=== PATIENT | male | born 1960 | race African-American/Black ===

== ENCOUNTER 2016-02-12 16:33 | Emergency (ER) | payer OTHER ==
[~2016-02-12 16:33] MED LIST: ALEVE220 MG PO; ALPRAZOLAM0.5 MG PO; AMARYL4 MG PO; ASPIR-LOW81 MG PO; Amaryl PO; HYDROCODON-ACE1 EAC7 PO; HYZAAR 100-11 TABLET PO; LANTUS 10100 UNITS/ SC; LANTUS100 UNIT/1 SQ; LIPITOR20 MG PO; LOW DOSE ASPIRI81 M2 PO; Levaquin PO; Lipitor PO; MOTRIN800 MG PO; MYLANTA 360 ML360 ML PO; NEURONTIN100 MG PO; NIASPAN,SLO-N1000 MG PO; NIASPAN,SLO-NI500 MG PO; NIASPAN1000 MG PO; NOVOLOG PE100 UNITS/ SC; NOVOLOG100 UNIT/2 SQ; OMEPRAZOLE20 MG PO; PHILLIPS'400 MG/5 M PO; PLAVIX75 MG PO; PREDNISONE20 MG PO; PREDNISONE50 MG PO; PRILOSEC20 MG PO; PROAIR HFA8.5 GM IH; PROVENTIL HFA6.7 GM IH; Plavix PO; Proventil,Ventolin H IH; Robitussin AC,Tussi- PO; THERAGEN60 GM TP; TOPROL XL100 MG PO; TYLENOL PM EX-1 EAC1 PO; TYLENOL REGULA325 MG PO; Toprol XL PO; VENTOLIN HFA18 GM IH; ZESTORETIC 20-1 EAC1 PO; ZESTRIL5 MG PO; ZITHROMAX Z-PA250 MG PO; Zestril,Prinivil PO; predniSONE PO
== END 2016-02-12 18:02 | disposition left against medical advice (07) ==
LOC: EME 16:33
DX: R56.9 Unspecified convulsions (principal); Z53.21 Procedure and treatment not carried out due to patient leaving prior to being seen by health care provider

== ENCOUNTER 2016-03-06 07:36 | Observation (INO) | payer OTHER ==
[~2016-03-06] VITALS: Ht 195.6 cm; Wt 159.0 kg
[2016-03-06 09:03] LABS: EOSINOPHIL (%) 0.8 % (0-5); EOSINOPHIL COUNT 0.1 K/uL (0-0.3); HEMATOCRIT 32.6 % (38.0-50.0); IMMATURE GRANULOCYTE (%) 0.2 % (0.0-0.7); IMMATURE GRANULOCYTE COUNT 0.2 K/uL; LYMPHOCYTE COUNT 1.4 K/uL (1.0-2.8); MCH 30.9 PG (29.0-34.0); MCV 90.8 FL (86-99); MONOCYTE (%) 5.5 % (3-12); MONOCYTE COUNT 0.5 K/uL (0-0.8); NEUTROPHIL (%) 76.7 % (45-76); NEUTROPHIL COUNT 6.4 K/uL (1.8-6.4); PLATELET COUNT 145 K/uL (156-360); RBC DIS.WIDTH-CV 12.8 % (11.8-14.6); RBC DIS.WIDTH-SD 41.1 % (39-53); RED BLOOD COUNT 3.59 M/uL (4.00-5.50); WHITE BLOOD COUNT 8.4 K/uL (4.1-10.2)
[2016-03-06 09:15] LABS: CHLORIDE 103 mEq/L (99-109); POTASSIUM 4.6 mEq/L (3.7-5.4); SODIUM 137 mEq/L (136-147)
[2016-03-06 09:17] LABS: GLUCOSE 215 mg/dL (70-99)
[2016-03-06 09:18] LABS: ANION GAP 10 MEQ/L (2-14)
[2016-03-06 09:21] LABS: GFR ESTIMATE (CALCULATED) > 59 mL/min/
[2016-03-06 09:22] LABS: UREA NITROGEN (BUN) 18 mg/dL (9-23)
[2016-03-06 09:23] LABS: CREATINE KINASE 362 IU/L (1-294); TROP-I INTERPRETATION NEGATIVE; TROPONIN-I 0.01 ng/mL (0.0-0.30)
[2016-03-06] MEDS ORDERED: GABAPENTIN300 MG PO (13:13)
[2016-03-06] MEDS ORDERED: NOVOLOG PE100 UNITS/ SC (13:14)
[2016-03-06] MEDS ORDERED: MEN'S MULTI-VI1 EACH PO (13:15)
[2016-03-06] MEDS ORDERED: MOBIC15 MG PO (13:16)
[2016-03-06] MEDS ORDERED: ACETAMINOPHEN-1 EAC1 PO (13:16)
[2016-03-06] MEDS ORDERED: TIZANIDINE HCL4 MG PO (13:16)
[2016-03-06] MEDS ORDERED: PRAVASTATIN SOD80 MG PO (13:17)
[2016-03-06] MEDS ORDERED: FLUTICASONE PRO16 GM BOTH NARES (13:17)
[2016-03-06] MEDS ORDERED: AZITHROMYCIN250 MG PO (13:22)
[2016-03-06 15:56] LABS: TROP-I INTERPRETATION NEGATIVE; TROPONIN-I < 0.01 ng/mL (0.0-0.30)
[2016-03-06 16:07] LABS: IRON 30 MCG/DL (35-150)
[2016-03-06 16:23] LABS: FERRITIN 181 NG/ML (22-322)
[2016-03-06 17:42] VITALS: BP 189/86
[2016-03-06 17:49] LABS: POINT-OF-CARE METER ID UU13113700
[2016-03-07 04:29] VITALS: BP 141/82
[2016-03-07 07:24] LABS: POINT-OF-CARE METER ID UU14162513
[2016-03-07 07:34] LABS: ANION GAP 9 MEQ/L (2-14); CHLORIDE 100 MEQ/L (99-109); CREATINE KINASE 259 IU/L (1-294); GFR ESTIMATE (CALCULATED) > 59 mL/min/; GLUCOSE 214 mg/dL (70-99); POTASSIUM 4.3 MEQ/L (3.7-5.4); SAMPLE HEMOLYSIS CHECK 0; SAMPLE ICTERIC CHECK 0; SAMPLE LIPEMIA CHECK 0; SODIUM 138 MEQ/L (136-147); TOTAL CK 259 IU/L (1-294); UREA NITROGEN (BUN) 20 mg/dL (9-23)
[2016-03-07 07:59] LABS: CK-MB 3.6 ng/mL (0.0-4.9)
[2016-03-07 08:30] VITALS: BP 170/84
[2016-03-07] MEDS ORDERED: FERROUS SULFAT325 MG PO (11:23)
[2016-03-07] MEDS ORDERED: ZITHROMAX500 MG PO (11:23)
[2016-03-07 12:42] LABS: POINT-OF-CARE METER ID UU13113700
[2016-03-07 13:14] VITALS: BP 163/79
[2016-03-07] MEDS ORDERED: NORVASC2.5 MG PO (14:40)
== END 2016-03-07 16:36 | disposition home or self-care (01) ==
LOC: EME 07:36 → EDOF 13:25 → 5WEST 13:25 → EDOF 13:25 → 5WEST 17:02
PROVIDERS: Emergency Medicine; Hospitalist; Internal Medicine
DX: J40 Bronchitis, not specified as acute or chronic (principal); R06.00 Dyspnea, unspecified; I27.2 Other secondary pulmonary hypertension; R07.9 Chest pain, unspecified; D50.9 Iron deficiency anemia, unspecified; N17.9 Acute kidney failure, unspecified; I25.10 Atherosclerotic heart disease of native coronary artery without angina pectoris; E11.9 Type 2 diabetes mellitus without complications; Z79.4 Long term (current) use of insulin; I10 Essential (primary) hypertension; E78.5 Hyperlipidemia, unspecified; Z95.1 Presence of aortocoronary bypass graft; J44.9 Chronic obstructive pulmonary disease, unspecified; Z79.82 Long term (current) use of aspirin; R53.83 Other fatigue; Z87.891 Personal history of nicotine dependence
CPT/HCPCS: 71010; 80048; 82550; 82553; 82607; 82728; 82746; 82948; 83540; 83880; 84466; 84484; 85025; 93005; 93306; 94760; 94799; 99202; 99281; 99285; G0378; J1644; J1815; J1940; J7030

== ENCOUNTER 2016-03-18 19:57 | Inpatient (IN) | payer OTHER ==
[~2016-03-18] VITALS: Ht 195.6 cm; Wt 156.0 kg
[~2016-03-18 19:57] MED LIST changes: +ACETAMINOPHEN-1 EAC1 PO; +AZITHROMYCIN250 MG PO; +FERROUS SULFAT325 MG PO; +FLUTICASONE PRO16 GM BOTH NARES; +GABAPENTIN300 MG PO; +MEN'S MULTI-VI1 EACH PO; +MOBIC15 MG PO; +NORVASC2.5 MG PO; +PRAVASTATIN SOD80 MG PO; +TIZANIDINE HCL4 MG PO; +ZITHROMAX500 MG PO
[2016-03-18 21:05] LABS: INFLUENZA A VIRAL ANTIGEN NEGATIVE; INFLUENZA B VIRAL ANTIGEN NEGATIVE
[2016-03-18 21:20] LABS: CHLORIDE 101 mEq/L (99-109); POTASSIUM 4.5 mEq/L (3.7-5.4); SODIUM 137 mEq/L (136-147)
[2016-03-18 21:21] LABS: GLUCOSE 126 mg/dL (70-99)
[2016-03-18 21:23] LABS: ANION GAP 13 MEQ/L (2-14)
[2016-03-18 21:24] LABS: HEMATOCRIT 39.5 % (38.0-50.0); MCH 31.4 PG (29.0-34.0); MCHC 34.4 G/DL (30.0-36.0); MCV 91.2 FL (86-99); MEAN PLAT.VOLUME 10.8 uM^3 (9.0-12.4); PLATELET COUNT 216 K/uL (156-360); RBC DIS.WIDTH-CV 12.6 % (11.8-14.6); RED BLOOD COUNT 4.33 M/uL (4.00-5.50); WHITE BLOOD COUNT 6.3 K/uL (4.1-10.2)
[2016-03-18 21:25] LABS: GFR ESTIMATE (CALCULATED) > 59 mL/min/
[2016-03-18 21:26] LABS: UREA NITROGEN (BUN) 26 mg/dL (9-23)
[2016-03-19 00:34] LABS: POINT-OF-CARE METER ID UU14100415; POINT-OF-CARE USER ID 608261302
[2016-03-19 00:42] LABS: D-DIMER ELISA 0.63 mg/L FEU (< 0.57)
[2016-03-19 03:17] VITALS: BP 149/72
[2016-03-19 07:37] VITALS: BP 147/67
[2016-03-19 10:41] LABS: ANION GAP 12 MEQ/L (2-14); CHLORIDE 98 MEQ/L (99-109); GFR ESTIMATE (CALCULATED) > 59 mL/min/; SAMPLE HEMOLYSIS CHECK 0; SAMPLE ICTERIC CHECK 0; SAMPLE LIPEMIA CHECK 0; SODIUM 135 MEQ/L (136-147); UREA NITROGEN (BUN) 21 mg/dL (9-23)
[2016-03-19 10:42] LABS: GLUCOSE 317 mg/dL (70-99)
[2016-03-19 15:02] VITALS: BP 142/66
[2016-03-20] VITALS: BP 120/63
[2016-03-20 06:59] LABS: HEMATOCRIT 35.6 % (38.0-50.0); MCH 30.9 PG (29.0-34.0); MEAN PLAT.VOLUME 10.6 uM^3 (9.0-12.4); PLATELET COUNT 216 K/uL (156-360); RBC DIS.WIDTH-CV 12.8 % (11.8-14.6); RBC DIS.WIDTH-SD 42.2 % (39-53); RED BLOOD COUNT 3.91 M/uL (4.00-5.50)
[2016-03-20 07:01] LABS: WHITE BLOOD COUNT 10.1 K/uL (4.1-10.2)
[2016-03-20 07:44] LABS: INTERNAL CONTROL VALID? YES
[2016-03-20 08:02] LABS: ANION GAP 10 MEQ/L (2-14); CHLORIDE 99 MEQ/L (99-109); GFR ESTIMATE (CALCULATED) > 59 mL/min/; GLUCOSE 379 mg/dL (70-99); POTASSIUM 4.5 MEQ/L (3.7-5.4); SAMPLE HEMOLYSIS CHECK 0; SAMPLE ICTERIC CHECK 0; SAMPLE LIPEMIA CHECK 0; SODIUM 135 MEQ/L (136-147); UREA NITROGEN (BUN) 29 mg/dL (9-23)
[2016-03-20 08:04] VITALS: BP 139/82
[2016-03-20 12:35] LABS: POINT-OF-CARE USER ID BHSKTD
[2016-03-20 15:23] VITALS: BP 146/76
[2016-03-21] VITALS: BP 148/63
[2016-03-21 07:45] VITALS: BP 132/65
[2016-03-21] MEDS ORDERED: LEVOFLOXACIN750 MG PO (11:35)
[2016-03-21] MEDS ORDERED: ADVAIR HFA120 INHALA IH (11:36)
[2016-03-21] MEDS ORDERED: PREDNISONE10 MG PO (11:36)
== END 2016-03-21 13:15 | disposition home or self-care (01) | DRG 191 ==
LOC: EME 19:57 → 5SOUTH 03-19 01:53 → EDOF 03-19 01:53 → 5SOUTH 03-19 03:10
PROVIDERS: Emergency Medicine; Family Medicine; Hospitalist; Physician Assistant Medical
DX: J44.0 Chronic obstructive pulmonary disease with (acute) lower respiratory infection (principal); J20.9 Acute bronchitis, unspecified; J44.1 Chronic obstructive pulmonary disease with (acute) exacerbation; I27.2 Other secondary pulmonary hypertension; G47.33 Obstructive sleep apnea (adult) (pediatric); Z99.81 Dependence on supplemental oxygen; E66.01 Morbid (severe) obesity due to excess calories; Z68.41 Body mass index [BMI] 40.0-44.9, adult; E11.40 Type 2 diabetes mellitus with diabetic neuropathy, unspecified; I10 Essential (primary) hypertension; J32.9 Chronic sinusitis, unspecified; I25.10 Atherosclerotic heart disease of native coronary artery without angina pectoris; E78.5 Hyperlipidemia, unspecified; J45.909 Unspecified asthma, uncomplicated; K21.9 Gastro-esophageal reflux disease without esophagitis; G43.909 Migraine, unspecified, not intractable, without status migrainosus; I25.2 Old myocardial infarction; F32.9 Major depressive disorder, single episode, unspecified; Z95.1 Presence of aortocoronary bypass graft; Z95.5 Presence of coronary angioplasty implant and graft; Z79.4 Long term (current) use of insulin; Z87.891 Personal history of nicotine dependence
CPT/HCPCS: 71020; 71275; 80048; 82948; 85027; 85379; 87040; 87070; 87205; 87449; 87502; 94640; 94640 76; 99202; 99281; 99285; J1644; J1815; J1956; J2930; J7030; J7512

== ENCOUNTER 2016-06-16 09:06 | Emergency (ER) | payer OTHER ==
[~2016-06-16] VITALS: Ht 195.6 cm; Wt 165.0 kg
[~2016-06-16 09:06] MED LIST changes: +ADVAIR HFA120 INHALA IH; +LEVOFLOXACIN750 MG PO; +PREDNISONE10 MG PO
[2016-06-16 09:40] LABS: HEMATOCRIT 34.3 % (38.0-50.0); MCH 31.1 PG (29.0-34.0); MCHC 33.5 G/DL (30.0-36.0); MCV 92.7 FL (86-99); MEAN PLAT.VOLUME 10.1 uM^3 (9.0-12.4); PLATELET COUNT 187 K/uL (156-360); RBC DIS.WIDTH-CV 13.1 % (11.8-14.6); RBC DIS.WIDTH-SD 44.5 % (39-53); WHITE BLOOD COUNT 5.9 K/uL (4.1-10.2)
[2016-06-16 09:53] LABS: CHLORIDE 104 mEq/L (99-109); POTASSIUM 5.4 mEq/L (3.7-5.4); SODIUM 137 mEq/L (136-147)
[2016-06-16 09:54] LABS: GLUCOSE 188 mg/dL (70-99)
[2016-06-16 09:56] LABS: ANION GAP 7 MEQ/L (2-14)
[2016-06-16 09:58] LABS: GFR ESTIMATE (CALCULATED) > 59 mL/min/
[2016-06-16 09:59] LABS: UREA NITROGEN (BUN) 22 mg/dL (9-23)
[2016-06-16 10:02] LABS: TROP-I INTERPRETATION NEGATIVE; TROPONIN-I 0.01 ng/mL (0.0-0.30)
[2016-06-16 10:25] LABS: POINT-OF-CARE METER ID UU13113702
[2016-06-16 12:39] LABS: POINT-OF-CARE METER ID UU13113702
[2016-06-16 12:55] LABS: TROP-I INTERPRETATION NEGATIVE; TROPONIN-I 0.01 ng/mL (0.0-0.30)
[2016-06-16] MEDS ORDERED: PREDNISONE20 MG PO (14:08)
[2016-06-16] MEDS ORDERED: TYLENOL WITH C1 EACH PO (14:08)
[2016-06-16 14:19] VITALS: BP 136/72
== END 2016-06-16 14:38 | disposition home or self-care (01) ==
LOC: EME 09:06
PROVIDERS: Nurse Practitioner Family
DX: J44.1 Chronic obstructive pulmonary disease with (acute) exacerbation (principal); M79.89 Other specified soft tissue disorders; G62.9 Polyneuropathy, unspecified; E11.9 Type 2 diabetes mellitus without complications; I10 Essential (primary) hypertension; Z79.4 Long term (current) use of insulin; I25.2 Old myocardial infarction; Z95.1 Presence of aortocoronary bypass graft; Z98.61 Coronary angioplasty status; Z87.891 Personal history of nicotine dependence
CPT/HCPCS: 71020; 80048; 82948; 83880; 84484; 85027; 93005; 94640; 99281; 99285

== ENCOUNTER 2016-07-29 17:02 | Emergency (ER) | payer OTHER ==
[~2016-07-29] VITALS: Ht 195.6 cm; Wt 159.8 kg
[~2016-07-29 17:02] MED LIST changes: +TYLENOL WITH C1 EACH PO
[2016-07-29] MEDS ORDERED: INDOCIN50 MG PO (19:36)
[2016-07-29] MEDS ORDERED: LIDOCAINE20 MG/1 M5 PO (19:36)
[2016-07-29] MEDS ORDERED: PREDNISONE20 MG PO (19:36)
[2016-07-29] MEDS ORDERED: CLINDAMYCIN HC300 MG PO (19:36)
[2016-07-29] MEDS ORDERED: NORCO 7.5/321 TABLET PO (19:37)
[2016-07-29 20:04] VITALS: BP 144/86
== END 2016-07-29 20:06 | disposition home or self-care (01) ==
LOC: EXP 17:02 → EME 17:02 → EXP 20:06
DX: K02.9 Dental caries, unspecified (principal); J44.9 Chronic obstructive pulmonary disease, unspecified; E11.9 Type 2 diabetes mellitus without complications; I10 Essential (primary) hypertension; E78.5 Hyperlipidemia, unspecified; Z95.1 Presence of aortocoronary bypass graft; Z95.5 Presence of coronary angioplasty implant and graft
CPT/HCPCS: 99281; 99284; J7512

== ENCOUNTER 2016-08-16 04:47 | Emergency (ER) | payer OTHER ==
[~2016-08-16] VITALS: Ht 195.6 cm; Wt 165.0 kg
[~2016-08-16 04:47] MED LIST changes: +CLINDAMYCIN HC300 MG PO; +INDOCIN50 MG PO; +LIDOCAINE20 MG/1 M5 PO; +NORCO 7.5/321 TABLET PO
[2016-08-16] MEDS ORDERED: NORCO 5/3251 TABLET PO (05:47)
[2016-08-16] MEDS ORDERED: LIDODERM 5% P1 PATCH TD (06:09)
[2016-08-16 06:18] VITALS: BP 151/84
== END 2016-08-16 06:31 | disposition home or self-care (01) ==
LOC: EME 04:47
DX: S20.211A Contusion of right front wall of thorax, initial encounter (principal); W01.0XXA Fall on same level from slipping, tripping and stumbling without subsequent striking against object, initial encounter; J44.9 Chronic obstructive pulmonary disease, unspecified; J45.909 Unspecified asthma, uncomplicated; I10 Essential (primary) hypertension; E11.9 Type 2 diabetes mellitus without complications; Z79.4 Long term (current) use of insulin; Z95.1 Presence of aortocoronary bypass graft; Z95.5 Presence of coronary angioplasty implant and graft; Z79.82 Long term (current) use of aspirin
CPT/HCPCS: 71101; 99281; 99283

== ENCOUNTER 2016-09-28 14:19 | Emergency (ER) | payer OTHER ==
[~2016-09-28] VITALS: Ht 195.6 cm; Wt 159.0 kg
[~2016-09-28 14:19] MED LIST changes: +LIDODERM 5% P1 PATCH TD; +NORCO 5/3251 TABLET PO
[2016-09-28 14:21] VITALS: BP 162/91
[2016-09-28] MEDS ORDERED: NORCO 5/3251 TABLET PO (15:01)
[2016-09-28] MEDS ORDERED: CLINDAMYCIN HC150 MG PO (15:01)
== END 2016-09-28 15:39 | disposition home or self-care (01) ==
LOC: EME 14:19
DX: K04.7 Periapical abscess without sinus (principal)
CPT/HCPCS: 99281; 99284

== ENCOUNTER 2016-12-28 01:25 | Emergency (ER) | payer OTHER ==
[~2016-12-28] VITALS: Ht 195.6 cm; Wt 162.8 kg
[~2016-12-28 01:25] MED LIST changes: +CLINDAMYCIN HC150 MG PO
[2016-12-28] MEDS ORDERED: VENTOLIN HFA18 GM IH (02:59)
[2016-12-28] MEDS ORDERED: ZITHROMAX Z-PA250 MG PO (02:59)
[2016-12-28 03:55] VITALS: BP 128/71
== END 2016-12-28 03:57 | disposition home or self-care (01) ==
LOC: EME 01:25
DX: J44.0 Chronic obstructive pulmonary disease with (acute) lower respiratory infection (principal); J20.9 Acute bronchitis, unspecified; I10 Essential (primary) hypertension; E11.9 Type 2 diabetes mellitus without complications; F32.9 Major depressive disorder, single episode, unspecified; K21.9 Gastro-esophageal reflux disease without esophagitis; F41.9 Anxiety disorder, unspecified; I25.2 Old myocardial infarction; Z95.1 Presence of aortocoronary bypass graft; Z95.5 Presence of coronary angioplasty implant and graft; Z86.73 Personal history of transient ischemic attack (TIA), and cerebral infarction without residual deficits; Z79.4 Long term (current) use of insulin; Z79.82 Long term (current) use of aspirin; Z88.5 Allergy status to narcotic agent
CPT/HCPCS: 71020; 94640; 99281; 99284

== ENCOUNTER 2017-01-29 23:08 | Observation (INO) | payer OTHER ==
[~2017-01-29] VITALS: Ht 195.6 cm; Wt 161.8 kg
[~2017-01-29 23:08] MED LIST changes: -GABAPENTIN300 MG PO; +GABAPENTIN600 MG PO; -LOW DOSE ASPIRI81 M2 PO
[2017-01-29 23:34] LABS: POINT-OF-CARE METER ID UU13113778
[2017-01-29 23:52] LABS: CHLORIDE 100 mEq/L (99-109); POTASSIUM 4.1 mEq/L (3.7-5.4); SODIUM 137 mEq/L (136-147)
[2017-01-29 23:54] LABS: GLUCOSE 182 mg/dL (70-99)
[2017-01-29 23:55] LABS: ANION GAP 11 MEQ/L (2-14); HEMATOCRIT 37.7 % (38.0-50.0); MCH 30.7 PG (29.0-34.0); MCHC 33.4 G/DL (30.0-36.0); RBC DIS.WIDTH-SD 43.2 % (39-53); WHITE BLOOD COUNT 6.5 K/uL (4.1-10.2)
[2017-01-29 23:58] LABS: GFR ESTIMATE (CALCULATED) 54 mL/min/ (58.99-99999)
[2017-01-29 23:59] LABS: UREA NITROGEN (BUN) 31 mg/dL (9-23)
[2017-01-30 00:06] LABS: TROP-I INTERPRETATION NEGATIVE; TROPONIN-I 0.02 ng/mL (0.0-0.30)
[2017-01-30 00:43] LABS: MEAN PLAT.VOLUME 11.1 uM^3 (9.0-12.4); PLATELET COUNT 197 K/uL (156-360)
[2017-01-30 06:26] LABS: CHLORIDE 103 mEq/L (99-109); POTASSIUM 5.9 mEq/L (3.7-5.4); SODIUM 135 mEq/L (136-147)
[2017-01-30 06:28] LABS: GLUCOSE 178 mg/dL (70-99)
[2017-01-30 06:29] LABS: ANION GAP 8 MEQ/L (2-14)
[2017-01-30 06:30] LABS: TOTAL BILIRUBIN 0.4 mg/dL (0.0-1.0)
[2017-01-30 06:32] LABS: ALKALINE PHOSPHATASE 68 IU/L (3-129); GFR ESTIMATE (CALCULATED) > 59 mL/min/ (58.99-99999)
[2017-01-30 06:33] LABS: UREA NITROGEN (BUN) 29 mg/dL (9-23)
[2017-01-30 06:35] LABS: TROP-I INTERPRETATION NEGATIVE; TROPONIN-I < 0.01 ng/mL (0.0-0.30)
[2017-01-30 07:03] LABS: HDL CHOLESTEROL 24 MG/DL (Desirable>=40); NON-HDL CHOLESTEROL 122 mg/dL (Desirable<160); TOTAL CHOLESTEROL 146 mg/dL (Desirable<200); TRIGLYCERIDES 416 MG/DL (Normal: <150)
[2017-01-30 08:49] LABS: Estimated Average Glucose 192 mg/dL (70-123); HEMOGLOBIN A1c (GLYCOHEMOGLOB) 8.3 % HGB (Below 5.7)
[2017-01-30 08:57] LABS: POINT-OF-CARE METER ID UU13113747
[2017-01-30] MEDS ORDERED: LIDODERM 5% P1 PATCH TD (11:29)
[2017-01-30] MEDS ORDERED: TIZANIDINE HCL4 MG PO (11:31)
[2017-01-30] MEDS ORDERED: METOPROLOL TART25 MG PO (11:31)
[2017-01-30] MEDS ORDERED: CLOPIDOGREL75 MG PO (11:35)
[2017-01-30 12:33] LABS: TROP-I INTERPRETATION NEGATIVE; TROPONIN-I < 0.01 ng/mL (0.0-0.30)
[2017-01-30] MEDS ORDERED: PROTONIX40 MG PO (15:50)
[2017-01-30 16:19] VITALS: BP 141/75
[2017-01-30 17:41] LABS: POINT-OF-CARE METER ID UU14302475
[2017-01-30 18:17] LABS: POINT-OF-CARE METER ID UU14162513
[2017-01-30 19:28] VITALS: BP 139/79
[2017-01-30 21:30] LABS: POINT-OF-CARE METER ID UU14302475
[2017-01-30 23:34] VITALS: BP 162/84
[2017-01-31 03:11] VITALS: BP 134/70
[2017-01-31 07:30] VITALS: BP 139/63
[2017-01-31] MEDS ORDERED: ATORVASTATIN CA40 MG PO (08:08)
[2017-01-31] MEDS ORDERED: LIDODERM 5% P1 PATCH TD (08:09)
[2017-01-31 08:10] LABS: POINT-OF-CARE METER ID UU13113700
== END 2017-01-31 09:33 | disposition home or self-care (01) ==
LOC: EME 23:08 → EDOF 01-30 05:00 → ENRESERV 01-30 05:12 → 5WEST 01-30 15:47
PROVIDERS: Hospitalist; Internal Medicine; Physician Assistant
PROC: 2W39X1Z Immobilization of Left Upper Extremity using Splint (ICD-10-PCS; principal; 2017-01-30)
DX: R07.89 Other chest pain (principal); I25.10 Atherosclerotic heart disease of native coronary artery without angina pectoris; Z95.1 Presence of aortocoronary bypass graft; Z95.5 Presence of coronary angioplasty implant and graft; I12.9 Hypertensive chronic kidney disease with stage 1 through stage 4 chronic kidney disease, or unspecified chronic kidney disease; N18.3 Chronic kidney disease, stage 3 (moderate); E11.22 Type 2 diabetes mellitus with diabetic chronic kidney disease; E78.5 Hyperlipidemia, unspecified; D68.1 Hereditary factor XI deficiency; Z79.4 Long term (current) use of insulin; J44.1 Chronic obstructive pulmonary disease with (acute) exacerbation; I25.2 Old myocardial infarction; K21.9 Gastro-esophageal reflux disease without esophagitis; E66.01 Morbid (severe) obesity due to excess calories; M70.22 Olecranon bursitis, left elbow; Z87.891 Personal history of nicotine dependence; Z79.82 Long term (current) use of aspirin; Z79.02 Long term (current) use of antithrombotics/antiplatelets; F10.10 Alcohol abuse, uncomplicated; Z83.3 Family history of diabetes mellitus; Z88.8 Allergy status to other drugs, medicaments and biological substances
CPT/HCPCS: 71020; 73030; 73080; 78582; 80048; 80053; 80061; 82948; 83036; 84132 91; 84484; 85027; 85379; 93005; 94640; 94640 76; 99202; 99281; 99285; A9540; A9567; G0378; J1644; J2270; J3010; J7030; J7512

== ENCOUNTER 2017-02-06 04:38 | Emergency (ER) | payer OTHER ==
[~2017-02-06] VITALS: Ht 195.6 cm; Wt 157.5 kg
[~2017-02-06 04:38] MED LIST changes: +ATORVASTATIN CA40 MG PO; +CLOPIDOGREL75 MG PO; +METOPROLOL TART25 MG PO; +PROTONIX40 MG PO
[2017-02-06 05:24] LABS: HEMATOCRIT 37.9 % (38.0-50.0); HEMOGLOBIN 12.9 G/DL (12.5-16.6); MCH 31.1 PG (29.0-34.0); MCV 91.3 FL (86-99); PLATELET COUNT 203 K/uL (156-360); RBC DIS.WIDTH-CV 12.9 % (11.8-14.6); RBC DIS.WIDTH-SD 43.2 % (39-53); RED BLOOD COUNT 4.15 M/uL (4.00-5.50); WHITE BLOOD COUNT 8.7 K/uL (4.1-10.2)
[2017-02-06 05:26] LABS: CARBON DIOXIDE (BICARBONATE) 26.6 MEQ/L (20-31)
[2017-02-06 05:38] LABS: ALBUMIN 4.5 g/dL (3.2-4.8); CHLORIDE 99 mEq/L (99-109); POTASSIUM 5.9 mEq/L (3.7-5.4); SODIUM 130 mEq/L (136-147)
[2017-02-06 05:39] LABS: MAGNESIUM 1.8 mg/dL (1.3-2.7)
[2017-02-06 05:41] LABS: GLUCOSE 370 mg/dL (70-99); TOTAL PROTEIN 8.1 g/dL (6.4-8.3)
[2017-02-06 05:43] LABS: TOTAL BILIRUBIN 0.3 mg/dL (0.0-1.0)
[2017-02-06 05:44] LABS: ALKALINE PHOSPHATASE 87 IU/L (3-129); GFR ESTIMATE (CALCULATED) 50 mL/min/ (58.99-99999); PHOSPHORUS 2.3 mg/dL (2.5-4.9)
[2017-02-06 05:45] LABS: CREATININE 1.8 mg/dL (0.6-1.3)
[2017-02-06 05:46] LABS: AST (GOT) 23 IU/L (2-34); UREA NITROGEN (BUN) 44 mg/dL (9-23)
[2017-02-06 05:47] LABS: ALT (GPT) 35 IU/L (3-49)
[2017-02-06 05:48] LABS: LIPASE 33 U/L (1.0-51.0)
[2017-02-06 05:52] LABS: APPEARANCE CLEAR ((CLEAR)); BILIRUBIN NEGATIVE; BLOOD NEGATIVE; COLOR STRAW ((YELLOW)); GLUCOSE (STRIP) >=500; KETONES NEGATIVE; LEUKOCYTES NEGATIVE; NITRITE NEGATIVE; PROTEIN (STRIP) NEGATIVE; SPECIFIC GRAVITY 1.018 (1.000-1.030); UCUL ADDED? NO; UROBILINOGEN 0.2 MG/DL (0.2-1.0)
[2017-02-06] MEDS ORDERED: PREDNISONE50 MG PO (05:52)
[2017-02-06] MEDS ORDERED: AMLODIPINE BES2.5 MG PO (05:53)
[2017-02-06 07:46] LABS: CARBON DIOXIDE (BICARBONATE) 25.5 MEQ/L (20-31)
[2017-02-06 07:53] LABS: CHLORIDE 103 mEq/L (99-109); POTASSIUM 5.7 mEq/L (3.7-5.4); SODIUM 132 mEq/L (136-147)
[2017-02-06 07:55] LABS: GLUCOSE 299 mg/dL (70-99)
[2017-02-06 07:59] LABS: CREATININE 1.5 mg/dL (0.6-1.3); GFR ESTIMATE (CALCULATED) > 59 mL/min/ (58.99-99999)
[2017-02-06 08:00] LABS: UREA NITROGEN (BUN) 42 mg/dL (9-23)
[2017-02-06 08:50] VITALS: BP 133/70
== END 2017-02-06 09:23 | disposition home or self-care (01) ==
LOC: EME 04:38
PROVIDERS: Emergency Medicine
DX: E11.65 Type 2 diabetes mellitus with hyperglycemia (principal); T38.0X5A Adverse effect of glucocorticoids and synthetic analogues, initial encounter; E11.22 Type 2 diabetes mellitus with diabetic chronic kidney disease; I12.9 Hypertensive chronic kidney disease with stage 1 through stage 4 chronic kidney disease, or unspecified chronic kidney disease; N18.9 Chronic kidney disease, unspecified; Z79.4 Long term (current) use of insulin; E87.1 Hypo-osmolality and hyponatremia; J44.9 Chronic obstructive pulmonary disease, unspecified; Z95.1 Presence of aortocoronary bypass graft; Z95.5 Presence of coronary angioplasty implant and graft; Z79.02 Long term (current) use of antithrombotics/antiplatelets; Z79.82 Long term (current) use of aspirin; Z79.52 Long term (current) use of systemic steroids; Z87.891 Personal history of nicotine dependence
CPT/HCPCS: 80048 91; 80053; 81003; 82803; 82948; 83690; 83735; 84100; 85027; 93005; 94640 76; 99281; 99285; J7030

== ENCOUNTER 2017-03-16 23:46 | Inpatient (IN) | payer OTHER ==
[~2017-03-16] VITALS: Ht 195.6 cm; Wt 154.2 kg
[~2017-03-16 23:46] MED LIST changes: +AMLODIPINE BES2.5 MG PO
[2017-03-17 00:24] LABS: HEMATOCRIT 32.4 % (38.0-50.0); HEMOGLOBIN 10.7 G/DL (12.5-16.6); MCH 30.7 PG (29.0-34.0); MCV 93.1 FL (86-99); PLATELET COUNT 209 K/uL (156-360); RBC DIS.WIDTH-CV 13.4 % (11.8-14.6); RBC DIS.WIDTH-SD 45.1 % (39-53); RED BLOOD COUNT 3.48 M/uL (4.00-5.50); WHITE BLOOD COUNT 6.6 K/uL (4.1-10.2)
[2017-03-17 00:32] LABS: CHLORIDE 106 mEq/L (99-109); POTASSIUM 4.3 mEq/L (3.7-5.4); SODIUM 142 mEq/L (136-147)
[2017-03-17 00:33] LABS: GLUCOSE 161 mg/dL (70-99)
[2017-03-17 00:37] LABS: CREATININE 1.6 mg/dL (0.6-1.3); GFR ESTIMATE (CALCULATED) 57 mL/min/ (58.99-99999)
[2017-03-17 00:38] LABS: UREA NITROGEN (BUN) 31 mg/dL (9-23)
[2017-03-17 00:44] LABS: TROP-I INTERPRETATION NEGATIVE; TROPONIN-I 0.05 ng/mL (0.0-0.30)
[2017-03-17 05:53] VITALS: BP 141/73
[2017-03-17 06:27] LABS: HEMATOCRIT 34.8 % (38.0-50.0); HEMOGLOBIN 11.4 G/DL (12.5-16.6); MCH 30.4 PG (29.0-34.0); MCHC 32.8 G/DL (30.0-36.0); MCV 92.8 FL (86-99); PLATELET COUNT 218 K/uL (156-360); RBC DIS.WIDTH-CV 13.6 % (11.8-14.6); RBC DIS.WIDTH-SD 45.4 % (39-53); RED BLOOD COUNT 3.75 M/uL (4.00-5.50)
[2017-03-17 06:33] LABS: TROP-I INTERPRETATION NEGATIVE; TROPONIN-I 0.03 ng/mL (0.0-0.30)
[2017-03-17 06:43] LABS: ALBUMIN 4.3 G/DL (3.2-4.8); ALKALINE PHOSPHATASE 81 IU/L (3-129); ALT (GPT) 49 IU/L (3-49); AST (GOT) 25 IU/L (2-34); CHLORIDE 100 MEQ/L (99-109); CREATININE 1.5 MG/DL (0.6-1.3); GFR ESTIMATE (CALCULATED) > 59 mL/min/ (58.99-99999); GLUCOSE 219 mg/dL (70-99); POTASSIUM 4.5 MEQ/L (3.7-5.4); SODIUM 139 MEQ/L (136-147); TOTAL BILIRUBIN 0.5 MG/DL (0.0-1.0); TOTAL PROTEIN 7.2 G/DL (6.4-8.3); UREA NITROGEN (BUN) 32 mg/dL (9-23)
[2017-03-17 09:00] VITALS: BP 150/77
[2017-03-17] MEDS ORDERED: OXYCODONE HCL10 MG PO (09:49)
[2017-03-17 11:45] VITALS: BP 140/69
[2017-03-17 12:56] LABS: TROP-I INTERPRETATION NEGATIVE; TROPONIN-I 0.01 ng/mL (0.0-0.30)
[2017-03-17 15:00] VITALS: BP 145/79
[2017-03-17 19:30] VITALS: BP 177/85
[2017-03-18] VITALS (7 sets, daily range): BP systolic 123–151; BP diastolic 60–90
[2017-03-18 05:50] LABS: HEMATOCRIT 34.6 % (38.0-50.0); HEMOGLOBIN 11.1 G/DL (12.5-16.6); MCHC 32.1 G/DL (30.0-36.0); MCV 93.5 FL (86-99); PLATELET COUNT 214 K/uL (156-360); RBC DIS.WIDTH-CV 13.5 % (11.8-14.6); RBC DIS.WIDTH-SD 45.7 % (39-53); WHITE BLOOD COUNT 11.9 K/uL (4.1-10.2)
[2017-03-18 06:17] LABS: CHLORIDE 98 MEQ/L (99-109); CREATININE 1.3 MG/DL (0.6-1.3); GFR ESTIMATE (CALCULATED) > 59 mL/min/ (58.99-99999); GLUCOSE 297 mg/dL (70-99); SODIUM 137 MEQ/L (136-147); UREA NITROGEN (BUN) 36 mg/dL (9-23)
[2017-03-19 04:15] VITALS: BP 133/74
[2017-03-19 05:37] LABS: HEMATOCRIT 34.6 % (38.0-50.0); HEMOGLOBIN 11.2 G/DL (12.5-16.6); MCHC 32.4 G/DL (30.0-36.0); MCV 92.8 FL (86-99); PLATELET COUNT 225 K/uL (156-360); RBC DIS.WIDTH-CV 13.2 % (11.8-14.6); RBC DIS.WIDTH-SD 45.2 % (39-53); RED BLOOD COUNT 3.73 M/uL (4.00-5.50); WHITE BLOOD COUNT 13.1 K/uL (4.1-10.2)
[2017-03-19 06:05] LABS: CHLORIDE 95 MEQ/L (99-109); CREATININE 1.2 MG/DL (0.6-1.3); GFR ESTIMATE (CALCULATED) > 59 mL/min/ (58.99-99999); GLUCOSE 380 mg/dL (70-99); POTASSIUM 5.9 MEQ/L (3.7-5.4); SODIUM 133 MEQ/L (136-147); UREA NITROGEN (BUN) 34 mg/dL (9-23)
[2017-03-19 08:25] VITALS: BP 150/74
[2017-03-19] MEDS ORDERED: XARELTO20 MG PO (10:40)
[2017-03-19] MEDS ORDERED: AMOX TR-K CLV1 EAC4 PO (10:40)
[2017-03-19] MEDS ORDERED: PREDNISONE20 MG PO (10:41)
[2017-03-19] MEDS ORDERED: LASIX20 MG PO (10:57)
== END 2017-03-19 12:28 | disposition home or self-care (01) | DRG 191 ==
LOC: EME 23:46 → EDOF 03-17 03:34 → ENRESERV 03-17 03:56 → 4EAST 03-17 05:38
PROVIDERS: Emergency Medicine; Internal Medicine; Physician Assistant
DX: J44.1 Chronic obstructive pulmonary disease with (acute) exacerbation (principal); I13.0 Hypertensive heart and chronic kidney disease with heart failure and stage 1 through stage 4 chronic kidney disease, or unspecified chronic kidney disease; I27.20 Pulmonary hypertension, unspecified; E78.5 Hyperlipidemia, unspecified; E11.22 Type 2 diabetes mellitus with diabetic chronic kidney disease; E11.65 Type 2 diabetes mellitus with hyperglycemia; Z68.41 Body mass index [BMI] 40.0-44.9, adult; I48.92 Unspecified atrial flutter; I48.91 Unspecified atrial fibrillation; R59.0 Localized enlarged lymph nodes; G47.33 Obstructive sleep apnea (adult) (pediatric); I25.10 Atherosclerotic heart disease of native coronary artery without angina pectoris; N18.3 Chronic kidney disease, stage 3 (moderate); I34.0 Nonrheumatic mitral (valve) insufficiency; E78.00 Pure hypercholesterolemia, unspecified; D64.9 Anemia, unspecified; E66.01 Morbid (severe) obesity due to excess calories; K21.9 Gastro-esophageal reflux disease without esophagitis; Z87.891 Personal history of nicotine dependence; Z79.4 Long term (current) use of insulin; Z95.5 Presence of coronary angioplasty implant and graft; Z95.1 Presence of aortocoronary bypass graft; I25.2 Old myocardial infarction; Z79.82 Long term (current) use of aspirin; Z83.3 Family history of diabetes mellitus; Z86.73 Personal history of transient ischemic attack (TIA), and cerebral infarction without residual deficits
CPT/HCPCS: 70450; 71045; 71046; 71250; 80048; 80053; 82728; 82948; 83880; 84132 91; 84484; 85027; 85379; 87502; 93005; 93306; 94640; 94640 76; 94799; 99202; 99281; 99285; J1644; J1815; J1940; J2930; J7512

== ENCOUNTER 2017-05-11 02:54 | Inpatient (IN) | payer OTHER ==
[~2017-05-11] VITALS: Ht 195.6 cm; Wt 164.1 kg
[~2017-05-11 02:54] MED LIST changes: +AMOX TR-K CLV1 EAC4 PO; +LASIX20 MG PO; +OXYCODONE HCL10 MG PO; +XARELTO20 MG PO
[2017-05-11 03:31] LABS: BASOPHIL (%) 0.4 % (0-1); EOSINOPHIL (%) 1.4 % (0-5); EOSINOPHIL COUNT 0.1 K/uL (0-0.3); HEMATOCRIT 33.1 % (38.0-50.0); HEMOGLOBIN 10.9 G/DL (12.5-16.6); IMMATURE GRANULOCYTE (%) 0.3 % (0.0-0.7); LYMPHOCYTE (%) 15.6 % (15-42); LYMPHOCYTE COUNT 1.2 K/uL (1.0-2.8); MCH 30.4 PG (29.0-34.0); MCHC 32.9 G/DL (30.0-36.0); MCV 92.5 FL (86-99); MONOCYTE (%) 6.2 % (3-12); MONOCYTE COUNT 0.5 K/uL (0-0.8); NEUTROPHIL (%) 76.1 % (45-76); NEUTROPHIL COUNT 5.9 K/uL (1.8-6.4); PLATELET COUNT 188 K/uL (156-360); RBC DIS.WIDTH-CV 13.4 % (11.8-14.6); RBC DIS.WIDTH-SD 45.6 % (39-53); RED BLOOD COUNT 3.58 M/uL (4.00-5.50); WHITE BLOOD COUNT 7.8 K/uL (4.1-10.2)
[2017-05-11 03:40] LABS: ALBUMIN 4.2 g/dL (3.2-4.8); CHLORIDE 106 mEq/L (99-109); POTASSIUM 4.8 mEq/L (3.7-5.4); SODIUM 141 mEq/L (136-147)
[2017-05-11 03:43] LABS: GLUCOSE 269 mg/dL (70-99); TOTAL PROTEIN 7.2 g/dL (6.4-8.3)
[2017-05-11 03:44] LABS: TOTAL BILIRUBIN 0.3 mg/dL (0.0-1.0)
[2017-05-11 03:46] LABS: ALKALINE PHOSPHATASE 82 IU/L (3-129); CREATININE 1.7 mg/dL (0.6-1.3); GFR ESTIMATE (CALCULATED) 54 mL/min/ (58.99-99999)
[2017-05-11 03:47] LABS: UREA NITROGEN (BUN) 31 mg/dL (9-23)
[2017-05-11 03:48] LABS: AST (GOT) 25 IU/L (2-34)
[2017-05-11 03:49] LABS: ALT (GPT) 24 IU/L (3-49)
[2017-05-11 03:52] LABS: TROP-I INTERPRETATION NEGATIVE; TROPONIN-I 0.02 ng/mL (0.0-0.30)
[2017-05-11 05:22] LABS: SERUM ETHYL ALCOHOL < 10 mg/dL
[2017-05-11] MEDS ORDERED: LIPITOR40 MG PO (08:22)
[2017-05-11 10:01] LABS: APPEARANCE CLEAR ((CLEAR)); BILIRUBIN NEGATIVE; BLOOD NEGATIVE; COLOR STRAW ((YELLOW)); GLUCOSE (STRIP) >=500; KETONES NEGATIVE; LEUKOCYTES NEGATIVE; NITRITE NEGATIVE; PROTEIN (STRIP) 30; SPECIFIC GRAVITY 1.017 (1.000-1.030); UCUL ADDED? NO; UROBILINOGEN 0.2 MG/DL (0.2-1.0)
[2017-05-11 10:10] LABS: AMPHETAMINE NEGATIVE (500 ng/mL); BARBITURATES NEGATIVE (200 ng/mL); BENZODIAZEPINES NEGATIVE (150 ng/mL); BUPRENORPHINE NEGATIVE (10 ng/mL); COCAINE NEGATIVE (150 ng/mL); METHADONE NEGATIVE (200 ng/mL); METHAMPHETAMINE NEGATIVE (500 ng/mL); OPIATES (MORPHINE) NEGATIVE (100 ng/mL); OXYCODONE PRESUMPTIVE POSITIVE (100 ng/mL); PHENCYCLIDINE NEGATIVE (25 ng/mL); PROPOXYPHENE NEGATIVE (300 ng/mL); THC CANNABINOIDS PRESUMPTIVE POSITIVE (50 ng/mL); TRICYCLIC ANTIDEPRESSANTS NEGATIVE (300 ng/mL)
[2017-05-11 16:45] VITALS: BP 138/78
[2017-05-12 00:05] VITALS: BP 148/78
[2017-05-12 08:00] VITALS: BP 132/67
[2017-05-12 08:07] LABS: HEMOGLOBIN A1c (GLYCOHEMOGLOB) 9.4 % (Below 5.7)
[2017-05-12] MEDS ORDERED: LEVOFLOXACIN750 MG PO (09:05)
[2017-05-12] MEDS ORDERED: NITROGLYCERIN0.4 MG SL ×2 (09:09)
[2017-05-12] MEDS ORDERED: LASIX20 MG PO (09:23)
== END 2017-05-12 12:50 | disposition home or self-care (01) | DRG 189 ==
LOC: EME 02:54 → 5SOUTH 04:47 → EDOF 04:47 → ENRESERV 04:57 → 5SOUTH 16:06
PROVIDERS: Emergency Medicine; Internal Medicine; Physician Assistant Medical
DX: J96.01 Acute respiratory failure with hypoxia (principal); J44.1 Chronic obstructive pulmonary disease with (acute) exacerbation; J44.0 Chronic obstructive pulmonary disease with (acute) lower respiratory infection; I48.3 Typical atrial flutter; N17.9 Acute kidney failure, unspecified; Z68.41 Body mass index [BMI] 40.0-44.9, adult; J20.9 Acute bronchitis, unspecified; E66.01 Morbid (severe) obesity due to excess calories; E11.40 Type 2 diabetes mellitus with diabetic neuropathy, unspecified; E11.65 Type 2 diabetes mellitus with hyperglycemia; E78.5 Hyperlipidemia, unspecified; I48.91 Unspecified atrial fibrillation; I25.10 Atherosclerotic heart disease of native coronary artery without angina pectoris; I11.0 Hypertensive heart disease with heart failure; I50.9 Heart failure, unspecified; F41.0 Panic disorder [episodic paroxysmal anxiety]; G47.33 Obstructive sleep apnea (adult) (pediatric); K21.9 Gastro-esophageal reflux disease without esophagitis; G89.29 Other chronic pain; M19.90 Unspecified osteoarthritis, unspecified site; I34.0 Nonrheumatic mitral (valve) insufficiency; I36.1 Nonrheumatic tricuspid (valve) insufficiency; I27.20 Pulmonary hypertension, unspecified; Z87.891 Personal history of nicotine dependence; Z79.01 Long term (current) use of anticoagulants; Z79.4 Long term (current) use of insulin; Z83.3 Family history of diabetes mellitus; Z91.19 Patient's noncompliance with other medical treatment and regimen; Z95.1 Presence of aortocoronary bypass graft; Z95.5 Presence of coronary angioplasty implant and graft; Z88.5 Allergy status to narcotic agent; Z79.51 Long term (current) use of inhaled steroids; Z79.82 Long term (current) use of aspirin
CPT/HCPCS: 71045; 80053; 80306 90; 81003; 82948; 83036; 83880; 84484; 84999; 85025; 93005; 94640; 94640 76; 94760; 94799; 99202; 99281; 99285; G0480; J1815; J1940; J1956; J2930

== ENCOUNTER 2017-05-27 16:18 | Emergency (ER) | payer OTHER ==
[~2017-05-27] VITALS: Ht 195.6 cm; Wt 159.9 kg
[~2017-05-27 16:18] MED LIST changes: +LIPITOR40 MG PO; +NITROGLYCERIN0.4 MG SL
[2017-05-27 17:49] LABS: BASOPHIL (%) 0.1 % (0-1); EOSINOPHIL (%) 0 % (0-5); HEMATOCRIT 34.1 % (38.0-50.0); HEMOGLOBIN 11.4 G/DL (12.5-16.6); IMMATURE GRANULOCYTE (%) 0.4 % (0.0-0.7); LYMPHOCYTE COUNT 0.4 K/uL (1.0-2.8); MCH 30.2 PG (29.0-34.0); MCHC 33.4 G/DL (30.0-36.0); MCV 90.5 FL (86-99); MONOCYTE COUNT 0.1 K/uL (0-0.8); NEUTROPHIL (%) 92.5 % (45-76); NEUTROPHIL COUNT 6.2 K/uL (1.8-6.4); PLATELET COUNT 193 K/uL (156-360); RBC DIS.WIDTH-CV 12.8 % (11.8-14.6); RBC DIS.WIDTH-SD 41.7 % (39-53); RED BLOOD COUNT 3.77 M/uL (4.00-5.50); WHITE BLOOD COUNT 6.7 K/uL (4.1-10.2)
[2017-05-27 18:05] LABS: CHLORIDE 101 mEq/L (99-109); SODIUM 137 mEq/L (136-147)
[2017-05-27 18:10] LABS: CREATININE 1.6 mg/dL (0.6-1.3); GFR ESTIMATE (CALCULATED) 57 mL/min/ (58.99-99999)
[2017-05-27 18:11] LABS: UREA NITROGEN (BUN) 24 mg/dL (9-23)
[2017-05-27 18:14] LABS: GLUCOSE 403 mg/dL (70-99); POTASSIUM 6.3 mEq/L (3.7-5.4)
[2017-05-27 18:17] LABS: TROP-I INTERPRETATION NEGATIVE; TROPONIN-I < 0.01 ng/mL (0.0-0.30)
[2017-05-27] MEDS ORDERED: PROVENTIL,2.5 MG/0.5 IH (19:44)
[2017-05-27 20:20] VITALS: BP 136/66
[2017-05-27] MEDS ORDERED: INDOCIN50 MG PO (20:25)
== END 2017-05-27 20:46 | disposition home or self-care (01) ==
LOC: EME 16:18
PROVIDERS: Emergency Medicine
DX: J44.1 Chronic obstructive pulmonary disease with (acute) exacerbation (principal); E11.9 Type 2 diabetes mellitus without complications; Z79.4 Long term (current) use of insulin; I48.91 Unspecified atrial fibrillation; Z79.01 Long term (current) use of anticoagulants; I10 Essential (primary) hypertension; I25.2 Old myocardial infarction; K21.9 Gastro-esophageal reflux disease without esophagitis; Z86.73 Personal history of transient ischemic attack (TIA), and cerebral infarction without residual deficits; F41.9 Anxiety disorder, unspecified; F32.9 Major depressive disorder, single episode, unspecified; Z95.5 Presence of coronary angioplasty implant and graft; Z87.891 Personal history of nicotine dependence
CPT/HCPCS: 71045; 80048; 82948; 84484; 85025; 93005; 94640; 94640 76; 99281; 99284; J1815

== ENCOUNTER 2017-06-15 14:53 | Inpatient (IN) | payer OTHER ==
[~2017-06-15] VITALS: Ht 195.6 cm; Wt 155.0 kg
[~2017-06-15 14:53] MED LIST changes: +PROVENTIL,2.5 MG/0.5 IH
[2017-06-15 16:01] LABS: HEMATOCRIT 34.1 % (38.0-50.0); HEMOGLOBIN 11.2 G/DL (12.5-16.6); MCH 30.3 PG (29.0-34.0); MCHC 32.8 G/DL (30.0-36.0); MCV 92.2 FL (86-99); PLATELET COUNT 172 K/uL (156-360); RBC DIS.WIDTH-CV 13.2 % (11.8-14.6); RBC DIS.WIDTH-SD 44.2 % (39-53)
[2017-06-15 16:10] LABS: CHLORIDE 104 mEq/L (99-109); INTER. NORMALIZED RATIO 1.5; POTASSIUM 4.7 mEq/L (3.7-5.4); SODIUM 141 mEq/L (136-147)
[2017-06-15 16:11] LABS: GLUCOSE 85 mg/dL (70-99)
[2017-06-15 16:13] LABS: PTT 33.2 SEC (25-37)
[2017-06-15 16:15] LABS: CREATININE 1.3 mg/dL (0.6-1.3); GFR ESTIMATE (CALCULATED) > 59 mL/min/ (58.99-99999)
[2017-06-15 16:16] LABS: UREA NITROGEN (BUN) 19 mg/dL (9-23)
[2017-06-15 16:23] LABS: TROP-I INTERPRETATION NEGATIVE; TROPONIN-I 0.02 ng/mL (0.0-0.30)
[2017-06-15 16:39] LABS: BASOPHIL (%) 0.3 % (0-1); EOSINOPHIL (%) 2.5 % (0-5); EOSINOPHIL COUNT 0.2 K/uL (0-0.3); IMMATURE GRANULOCYTE (%) 0.2 % (0.0-0.7); LYMPHOCYTE (%) 17.7 % (15-42); LYMPHOCYTE COUNT 1.1 K/uL (1.0-2.8); MONOCYTE (%) 10.5 % (3-12); MONOCYTE COUNT 0.6 K/uL (0-0.8); NEUTROPHIL (%) 68.8 % (45-76); NEUTROPHIL COUNT 4.1 K/uL (1.8-6.4)
[2017-06-15] MEDS ORDERED: PREDNISONE20 MG PO (19:15)
[2017-06-15] MEDS ORDERED: ZITHROMAX Z-PA250 MG PO (19:15)
[2017-06-15] MEDS ORDERED: VENTOLIN HFA18 GM IH (19:15)
[2017-06-15] MEDS ORDERED: ALBUTEROL2.5 MG/3 M IH (19:15)
[2017-06-15 21:23] LABS: BASE EXCESS 1.5 mEq/L (-3 to +3); BICARBONATE 26.6 mEq/L (22-26); CARBOXY HGB 0.5 % (0-5); COMMENTS - BLOOD GASES C+; DEVICE NC; METHEMOGLOBIN 0.2 % (0-1.5); O2 FLOW 1 L/MIN; PCO2 43 mm Hg (35-45); PO2 64 mm Hg (80-100); SITE LR
[2017-06-15] MEDS ORDERED: ALBUTEROL2.5 MG/0.5 IH (21:48)
[2017-06-15] MEDS ORDERED: LASIX20 MG PO (21:57)
[2017-06-15] MEDS ORDERED: NORVASC2.5 MG PO (21:58)
[2017-06-15 22:26] VITALS: BP 171/81
[2017-06-16 04:00] VITALS: BP 119/57
[2017-06-16 06:21] LABS: HEMATOCRIT 33.8 % (38.0-50.0); MCH 29.9 PG (29.0-34.0); MCHC 32.5 G/DL (30.0-36.0); MCV 91.8 FL (86-99); PLATELET COUNT 191 K/uL (156-360); RBC DIS.WIDTH-SD 42.5 % (39-53); RED BLOOD COUNT 3.68 M/uL (4.00-5.50); WHITE BLOOD COUNT 5.3 K/uL (4.1-10.2)
[2017-06-16 06:36] LABS: CHLORIDE 98 MEQ/L (99-109); CREATININE 1.3 MG/DL (0.6-1.3); GFR ESTIMATE (CALCULATED) > 59 mL/min/ (58.99-99999); SODIUM 134 MEQ/L (136-147); UREA NITROGEN (BUN) 22 mg/dL (9-23)
[2017-06-16 06:37] LABS: GLUCOSE 346 mg/dL (70-99)
[2017-06-16 07:36] VITALS: BP 129/59
[2017-06-16 11:12] LABS: CHLORIDE 100 MEQ/L (99-109); CREATININE 1.2 MG/DL (0.6-1.3); GFR ESTIMATE (CALCULATED) > 59 mL/min/ (58.99-99999); GLUCOSE 314 mg/dL (70-99); POTASSIUM 5.7 MEQ/L (3.7-5.4); SODIUM 135 MEQ/L (136-147); UREA NITROGEN (BUN) 25 mg/dL (9-23)
[2017-06-16 11:46] VITALS: BP 164/76
[2017-06-16 15:27] VITALS: BP 161/79
[2017-06-16 15:35] LABS: CHLORIDE 100 MEQ/L (99-109); CREATININE 1.2 MG/DL (0.6-1.3); GFR ESTIMATE (CALCULATED) > 59 mL/min/ (58.99-99999); GLUCOSE 263 mg/dL (70-99); SODIUM 135 MEQ/L (136-147); UREA NITROGEN (BUN) 26 mg/dL (9-23)
[2017-06-16 19:00] VITALS: BP 128/66
[2017-06-17 00:03] VITALS: BP 142/78
[2017-06-17 04:04] VITALS: BP 131/67
[2017-06-17 04:57] LABS: BASOPHIL (%) 0.1 % (0-1); EOSINOPHIL (%) 0 % (0-5); HEMATOCRIT 33.6 % (38.0-50.0); HEMOGLOBIN 11.5 G/DL (12.5-16.6); IMMATURE GRANULOCYTE (%) 0.6 % (0.0-0.7); LYMPHOCYTE (%) 8.1 % (15-42); LYMPHOCYTE COUNT 0.8 K/uL (1.0-2.8); MCH 30.6 PG (29.0-34.0); MCHC 34.2 G/DL (30.0-36.0); MCV 89.4 FL (86-99); MONOCYTE (%) 4.1 % (3-12); MONOCYTE COUNT 0.4 K/uL (0-0.8); NEUTROPHIL (%) 87.1 % (45-76); NEUTROPHIL COUNT 8.8 K/uL (1.8-6.4); NRBC (%) 0.2 /100 WBC (0-0); PLATELET COUNT 203 K/uL (156-360); RBC DIS.WIDTH-CV 12.6 % (11.8-14.6); RBC DIS.WIDTH-SD 41.1 % (39-53); RED BLOOD COUNT 3.76 M/uL (4.00-5.50); WHITE BLOOD COUNT 10.1 K/uL (4.1-10.2)
[2017-06-17 05:13] LABS: CHLORIDE 102 mEq/L (99-109); POTASSIUM 4.9 mEq/L (3.7-5.4); SODIUM 139 mEq/L (136-147)
[2017-06-17 05:15] LABS: GLUCOSE 331 mg/dL (70-99)
[2017-06-17 05:19] LABS: CREATININE 1.5 mg/dL (0.6-1.3); GFR ESTIMATE (CALCULATED) > 59 mL/min/ (58.99-99999)
[2017-06-17 05:20] LABS: UREA NITROGEN (BUN) 34 mg/dL (9-23)
[2017-06-17 07:57] VITALS: BP 148/66
[2017-06-17 11:40] VITALS: BP 130/64
[2017-06-17 16:50] VITALS: BP 127/80
[2017-06-17 19:45] VITALS: BP 140/70
[2017-06-18] VITALS (7 sets, daily range): BP systolic 117–178; BP diastolic 58–86
[2017-06-18 10:10] LABS: CHLORIDE 100 MEQ/L (99-109); CREATININE 1.3 MG/DL (0.6-1.3); GFR ESTIMATE (CALCULATED) > 59 mL/min/ (58.99-99999); GLUCOSE 261 mg/dL (70-99); POTASSIUM 4.9 MEQ/L (3.7-5.4); SODIUM 138 MEQ/L (136-147); UREA NITROGEN (BUN) 41 mg/dL (9-23)
[2017-06-19 03:26] VITALS: BP 136/71
[2017-06-19 05:20] LABS: HEMATOCRIT 34.5 % (38.0-50.0); HEMOGLOBIN 11.7 G/DL (12.5-16.6); MCH 30.1 PG (29.0-34.0); MCHC 33.9 G/DL (30.0-36.0); MCV 88.7 FL (86-99); PLATELET COUNT 219 K/uL (156-360); RBC DIS.WIDTH-CV 12.9 % (11.8-14.6); RBC DIS.WIDTH-SD 41.2 % (39-53); RED BLOOD COUNT 3.89 M/uL (4.00-5.50); WHITE BLOOD COUNT 12.2 K/uL (4.1-10.2)
[2017-06-19 05:45] LABS: CHLORIDE 101 MEQ/L (99-109); CREATININE 1.2 MG/DL (0.6-1.3); GFR ESTIMATE (CALCULATED) > 59 mL/min/ (58.99-99999); GLUCOSE 269 mg/dL (70-99); POTASSIUM 4.5 MEQ/L (3.7-5.4); SODIUM 137 MEQ/L (136-147); UREA NITROGEN (BUN) 39 mg/dL (9-23)
[2017-06-19 08:49] VITALS: BP 128/61
[2017-06-19 11:30] VITALS: BP 148/61
[2017-06-19 16:06] VITALS: BP 138/65
[2017-06-19 19:00] VITALS: BP 151/70
[2017-06-20 03:58] VITALS: BP 121/58
[2017-06-20 07:30] VITALS: BP 146/70
[2017-06-20] MEDS ORDERED: AUGMENTIN875 MG PO (11:11)
[2017-06-20] MEDS ORDERED: DOXYCYCLINE HY100 M3 PO (11:11)
[2017-06-20] MEDS ORDERED: SPIRIVA RESPIMAT4 GM IH (11:12)
[2017-06-20] MEDS ORDERED: SORE THROAT LO1 EAC3 MM (11:13)
[2017-06-20] MEDS ORDERED: PREDNISONE5 M1 PO (11:14)
[2017-06-20] MEDS ORDERED: ROBITUSSIN AC,T10 ML PO (11:49)
[2017-06-20] MEDS ORDERED: ALBUTEROL2.5 MG/0.5 IH (11:53)
== END 2017-06-20 12:13 | disposition home or self-care (01) | DRG 189 ==
LOC: EME 14:53 → EDOF 20:59 → ENRESERV 21:03 → 4SOUTH 22:14 → ENPENDDIS 06-20 11:20 → 4SOUTH 06-20 12:13
PROVIDERS: Emergency Medicine; Hospitalist; Internal Medicine; Physician Assistant
DX: J96.01 Acute respiratory failure with hypoxia (principal); J18.9 Pneumonia, unspecified organism; J44.0 Chronic obstructive pulmonary disease with (acute) lower respiratory infection; J44.1 Chronic obstructive pulmonary disease with (acute) exacerbation; E66.01 Morbid (severe) obesity due to excess calories; Z68.41 Body mass index [BMI] 40.0-44.9, adult; I10 Essential (primary) hypertension; E78.5 Hyperlipidemia, unspecified; I25.10 Atherosclerotic heart disease of native coronary artery without angina pectoris; I25.2 Old myocardial infarction; Z95.1 Presence of aortocoronary bypass graft; I27.20 Pulmonary hypertension, unspecified; G47.33 Obstructive sleep apnea (adult) (pediatric); E11.42 Type 2 diabetes mellitus with diabetic polyneuropathy; M19.90 Unspecified osteoarthritis, unspecified site; K21.9 Gastro-esophageal reflux disease without esophagitis; I48.92 Unspecified atrial flutter; D64.9 Anemia, unspecified; E11.65 Type 2 diabetes mellitus with hyperglycemia; E87.5 Hyperkalemia; G89.4 Chronic pain syndrome; Z95.5 Presence of coronary angioplasty implant and graft; Z91.19 Patient's noncompliance with other medical treatment and regimen; Z79.01 Long term (current) use of anticoagulants; Z79.4 Long term (current) use of insulin; Z86.73 Personal history of transient ischemic attack (TIA), and cerebral infarction without residual deficits
CPT/HCPCS: 36600; 71045; 71046; 71250; 80048; 80048 91; 82803; 82948; 83605; 84484; 85025; 85027; 85610; 85730; 87040; 87070; 87205; 93005; 94640; 94640 76; 94667; 94668; 94799; 99202; 99281; 99285; G0378; J0295; J0456; J1815; J2920; J2930; J7050

== ENCOUNTER 2017-09-06 11:46 | Observation (INO) | payer OTHER ==
[~2017-09-06] VITALS: Ht 193 cm; Wt 145.0 kg
[~2017-09-06 11:46] MED LIST changes: +ALBUTEROL2.5 MG/0.5 IH; +ALBUTEROL2.5 MG/3 M IH; +AUGMENTIN875 MG PO; +DOXYCYCLINE HY100 M3 PO; +PREDNISONE5 M1 PO; +ROBITUSSIN AC,T10 ML PO; +SORE THROAT LO1 EAC3 MM; +SPIRIVA RESPIMAT4 GM IH
[2017-09-06 13:09] LABS: BASOPHIL (%) 0.4 % (0-1); EOSINOPHIL (%) 2.3 % (0-5); EOSINOPHIL COUNT 0.1 K/uL (0-0.3); HEMATOCRIT 32.9 % (38.0-50.0); HEMOGLOBIN 11.1 G/DL (12.5-16.6); IMMATURE GRANULOCYTE (%) 0.5 % (0.0-0.7); LYMPHOCYTE (%) 18.8 % (15-42); LYMPHOCYTE COUNT 1.1 K/uL (1.0-2.8); MCH 30.6 PG (29.0-34.0); MCHC 33.7 G/DL (30.0-36.0); MCV 90.6 FL (86-99); MONOCYTE (%) 8.6 % (3-12); MONOCYTE COUNT 0.5 K/uL (0-0.8); NEUTROPHIL (%) 69.4 % (45-76); NEUTROPHIL COUNT 3.9 K/uL (1.8-6.4); PLATELET COUNT 200 K/uL (156-360); RBC DIS.WIDTH-CV 14.3 % (11.8-14.6); RBC DIS.WIDTH-SD 47.8 % (39-53); RED BLOOD COUNT 3.63 M/uL (4.00-5.50); WHITE BLOOD COUNT 5.6 K/uL (4.1-10.2)
[2017-09-06 13:19] LABS: CHLORIDE 103 mEq/L (99-109); POTASSIUM 5.2 mEq/L (3.7-5.4); SODIUM 138 mEq/L (136-147)
[2017-09-06 13:21] LABS: GLUCOSE 239 mg/dL (70-99)
[2017-09-06 13:25] LABS: CREATININE 1.6 mg/dL (0.6-1.3); GFR ESTIMATE (CALCULATED) 57 mL/min/ (58.99-99999)
[2017-09-06 13:26] LABS: UREA NITROGEN (BUN) 36 mg/dL (9-23)
[2017-09-06 13:32] LABS: TROP-I INTERPRETATION NEGATIVE; TROPONIN-I < 0.01 ng/mL (0.0-0.30)
[2017-09-06 13:35] LABS: D-DIMER ELISA < 150.00 ng/mLDDU (<230)
[2017-09-06 16:04] LABS: APPEARANCE CLEAR ((CLEAR)); BILIRUBIN NEGATIVE; BLOOD NEGATIVE; COLOR YELLOW ((YELLOW)); GLUCOSE (STRIP) 50; KETONES NEGATIVE; LEUKOCYTES NEGATIVE; NITRITE NEGATIVE; PROTEIN (STRIP) NEGATIVE; SPECIFIC GRAVITY 1.015 (1.000-1.030); UROBILINOGEN 0.2 MG/DL (0.2-1.0)
[2017-09-06] MEDS ORDERED: OMEPRAZOLE40 M1 PO (17:19)
[2017-09-06] MEDS ORDERED: ALLOPURINOL300 MG PO (17:21)
[2017-09-06] MEDS ORDERED: PROMETHAZINE HC25 M1 PO (17:21)
[2017-09-06] MEDS ORDERED: MULTIVITAMIN1 EAC2 PO (17:21)
[2017-09-06] MEDS ORDERED: ZESTORETIC 20-1 EAC1 PO (17:21)
[2017-09-06] MEDS ORDERED: FUROSEMIDE40 MG PO (17:22)
[2017-09-06] MEDS ORDERED: CETIRIZINE HCL10 M2 PO (17:22)
[2017-09-06] MEDS ORDERED: ALBUTEROL2.5 MG/3 M IH (17:22)
[2017-09-06] MEDS ORDERED: BREO ELLIPTA I1 EACH IH (17:24)
[2017-09-06 20:20] VITALS: BP 118/58
[2017-09-07 03:56] VITALS: BP 132/73
[2017-09-07 05:10] LABS: TROP-I INTERPRETATION NEGATIVE; TROPONIN-I 0.01 ng/mL (0.0-0.30)
[2017-09-07 05:11] LABS: HEMATOCRIT 31.1 % (38.0-50.0); HEMOGLOBIN 10.1 G/DL (12.5-16.6); MCH 29.8 PG (29.0-34.0); MCHC 32.5 G/DL (30.0-36.0); MCV 91.7 FL (86-99); PLATELET COUNT 182 K/uL (156-360); RBC DIS.WIDTH-CV 14.5 % (11.8-14.6); RBC DIS.WIDTH-SD 48.9 % (39-53); RED BLOOD COUNT 3.39 M/uL (4.00-5.50); WHITE BLOOD COUNT 5.6 K/uL (4.1-10.2)
[2017-09-07 05:45] LABS: CHLORIDE 105 MEQ/L (99-109); CREATININE 1.3 MG/DL (0.6-1.3); GFR ESTIMATE (CALCULATED) > 59 mL/min/ (58.99-99999); GLUCOSE 143 mg/dL (70-99); POTASSIUM 4.9 MEQ/L (3.7-5.4); SODIUM 142 MEQ/L (136-147); UREA NITROGEN (BUN) 26 mg/dL (9-23)
[2017-09-07 09:50] VITALS: BP 111/58
[2017-09-07 11:17] LABS: TROP-I INTERPRETATION NEGATIVE; TROPONIN-I < 0.01 ng/mL (0.0-0.30)
[2017-09-07 12:52] VITALS: BP 140/64
== END 2017-09-07 13:49 | disposition home or self-care (01) ==
LOC: EME 11:46 → EDOF 18:48 → ENRESERV 18:54 → 4SOUTH 19:52
PROVIDERS: Hospitalist; Physician Assistant
DX: R06.02 Shortness of breath (principal); I25.10 Atherosclerotic heart disease of native coronary artery without angina pectoris; Z95.5 Presence of coronary angioplasty implant and graft; Z95.1 Presence of aortocoronary bypass graft; I48.2 Chronic atrial fibrillation; Z79.01 Long term (current) use of anticoagulants; D64.9 Anemia, unspecified; Z87.891 Personal history of nicotine dependence; I10 Essential (primary) hypertension; I25.2 Old myocardial infarction; E78.5 Hyperlipidemia, unspecified; J44.9 Chronic obstructive pulmonary disease, unspecified; K21.9 Gastro-esophageal reflux disease without esophagitis; E11.42 Type 2 diabetes mellitus with diabetic polyneuropathy; E11.65 Type 2 diabetes mellitus with hyperglycemia; F41.9 Anxiety disorder, unspecified; E66.01 Morbid (severe) obesity due to excess calories; Z68.38 Body mass index [BMI] 38.0-38.9, adult; G89.29 Other chronic pain; M54.5 Low back pain; M54.2 Cervicalgia; Z79.4 Long term (current) use of insulin; Z79.82 Long term (current) use of aspirin; Z83.3 Family history of diabetes mellitus; Z82.5 Family history of asthma and other chronic lower respiratory diseases
CPT/HCPCS: 71046; 71250; 80048; 81003; 82948; 83605; 83880; 84484; 85025; 85027; 85379; 87040; 93005; 94640; 94799; 99281; 99285; G0378; J1815; J2405; J7030